=== PATIENT | male | born 1990 | race Caucasian/White ===

== ENCOUNTER 2018-11-02 16:54 | Emergency (ER) | payer OTHER ==
[~2018-11-02] VITALS: Ht 185.4 cm; Wt 90.7 kg
[2018-11-02] MEDS ORDERED: LIDOCAINE 1% VIAL ONE (17:04)
[2018-11-02 17:11] VITALS: BP 148/72
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
[2018-11-02] MEDS ORDERED: TRIPLE ANTIBIOTIC OINTMENT TP ONE (17:39)
[2018-11-02] MEDS ORDERED: ANCEF ONE (17:45)
[2018-11-02] MEDS ORDERED: ANCEF IM STA (17:45)
[2018-11-02] MEDS ORDERED: NORCO 5MG PO STA (17:45)
--- NOTE | 2018-11-02 17:45 | NUR ---
wound SUTURES PLACED BY DOCTOR SUNIL USING STERILE TECHNIQUE, NEOSPORIN APPLIED AND COVERED WITH TELFA AND KERLEX AND SECURED WITH MEDIPORE TAPE.
--- NOTE | 2018-11-02 17:50 | ER.PDOC ---
General Chief Complaint: Extremities Stated Complaint: LEG LACERATION Time seen by MD: 17:47 Source: patient Exam Limitations: no limitations History of Present Illness Initial Comments Laceration right knee Onset: just prior to arrival Where: home Context: laceration Severity: moderate Allergies: Coded Allergies: No Known Allergies (Unverified , 11/02/18) Home Meds No Active Prescriptions or Reported Meds Past Medical History Medical History: no pertinent history Surgical History: other Social History Smoking: non-smoker Alcohol Use: occassionally Drug Use: none Review of Systems Constitutional: no symptoms reported EENTM: no symptoms reported Respiratory: no symptoms reported Cardiovascular: no symptoms reported Gastrointestinal: no symptoms reported Skin: see HPI All Other Systems: Reviewed and Negative Physical Exam General Appearance: Alert, No Apparent Distress Foot: nml inspection, non-tender, nml color/temp, skin intact Ankle: nml inspection, non-tender, nml ROM, no joint swelling, skin intact Knee: see diagram Thigh/Hip: nml inspection 1 - Lac Gait: limited by pain Neuro/Vasc/Tendon: sensation nml, motor nml, no vascular compromise, tendon function nml Head/ENT: nml inspection, pharynx nml Neck/Back: nml inspection, non-tender Abdomen: non-tender, pelvis stable ED LACERATION WOUND REPAIR # of Wounds/Lacerations Presen: 1 Wound Location & Length (Requi: Right knee Wound Length (cm): 5 Wound cleaned: betadine Anesthesia: 1% Lidocaine Volume Anesthetic (ccs): 10 Wound's Depth, Shape: irregular Irrigated w/ Saline (ccs): 60 Wound Repaired With: sutures Suture Size/Type: 4:0, ethilon Suture Style: interupted Number of Sutures: 10 Sterile Dressing Applied?: Yes Results/Orders Results/Orders Orders - ALEX BARBER MD Xr Knee Rt 2v (11/02/18 17:22) Hydrocodone/Acetaminophen ([place] 5mg) (11/02/18 17:45) Cefazolin Sodium (Ancef) (11/02/18 17:45) Vital Signs Date Time Temp Pulse Resp B/P (MAP) Pulse Ox O2 Delivery O2 Flow Rate FiO2 11/02/18 17:11 98.5 67 18 148/72 (97) 97 Room Air 98.5 11/02/18 17:09 98.5 67 18 97 Room Air 98.5 11/02/18 17:08 98.5 67 18 98.5 EKG/XRAY/CT/US XRAY Comments: No acute fracture of right knee Departure Time of Disposition: 17:49 Disposition: 01 HOME, SELF-CARE Impression: Primary Impression: Laceration of knee Additional Impression: Right knee injury Condition: Stable Additional Instructions: Keflex Tramadol Apply Neosporin daily Remove sutures in 10 days at your PCP or ED Scripts No Active Prescriptions or Reported Meds Duration or Time Spent with Pa: 45 mins Problem Qualifiers Primary Impression: Laceration of knee Encounter type: initial encounter Laterality: right Qualified Codes: S81.011A - Laceration without foreign body, right knee, initial encounter Additional Impression: Right knee injury Encounter type: initial encounter Qualified Codes: S89.91XA - Unspecified injury of right lower leg, initial encounter ALEX BARBER MD Nov 02, 2018 17:50
[2018-11-02 17:54] VITALS: BP 132/69
--- NOTE | 2018-11-02 17:54 | DIREP ---
PROCEDURE:XRAY KNEE 2 VWS-RT COMPARISON:None. INDICATIONS:RIGHT KNEE PAIN FROM A FALL FINDINGS: BONES:Normal. JOINTS:Normal. SOFT TISSUES:Normal. OTHER:No additional findings. CONCLUSION:Normal examination. Dictated by: Joseph Song M.D. on 11/02/2018 at 05:53 PM
[2018-11-02] MEDS ORDERED: NORCO 5MG PO ONE (18:11)
[2018-11-02 18:23] VITALS: BP 132/69
== END 2018-11-02 18:24 | disposition home or self-care (01) ==
LOC: ER 16:54
DX: S81.011A Laceration without foreign body, right knee, initial encounter (principal); W11.XXXA Fall on and from ladder, initial encounter; Y93.89 Activity, other specified; Y92.098 Other place in other non-institutional residence as the place of occurrence of the external cause; Y99.8 Other external cause status
CPT/HCPCS: 12002; 73560; 96372; 99284; J0690; J2001